=== PATIENT | male | born 1960 | race Caucasian/White ===

== ENCOUNTER 2020-08-01 18:27 | Observation (INO) ==
[2020-08-01] MEDS ORDERED: IOPAMIDOL 100 ML BOTTLE IV ONE (18:28)
[2020-08-01] MEDS ORDERED: KETOROLAC 15 MG/ML VIAL IV ONE (18:29)
[2020-08-01] MEDS ORDERED: PHENobarb/HYOSCY/ATROPINE/SCOP 1 DOSE BOTTLE PO ONE (18:29)
--- NOTE | 2020-08-01 18:33 | Emergency Department Note ---
HPI General Chief complaint: Chest Pain Stated complaint: chest pain Time Seen by Provider: 08/01/20 18:29 Source: patient Mode of arrival: ambulatory Limitations: no limitations History of Present Illness HPI Narrative: Narrative: 60-year-old male presents the ER to be evaluated for 2 days of constipation and lack of passing gas. 1 year ago he had a vertebral fusion with an anterior and posterior approach. He had a bowel obstruction resolved with an NG tube and patient. Since then over the last year he has had multiple episodes where he has had significant indigestion after eating food but it is resolved on its own. He is on Prilosec which has not done a great job keeping his reflux under control. He has had some pain radiating into his chest from this. He states he has made a bowel movement for 2 days and has been passing gas and feels like he did when he had a previous bowel obstruction. He has had nausea without vomiting. He denies diaphoresis, worsening with exertion, previous cardiac hist ory. He did have an inpatient cardiac work-up with negative stress test and echocardiogram within the last few years. He states he had a clear bill of health in terms of his heart. He is concerned for obstruction at this time and has no other acute he denies headache, diaphoresis, vomiting, chest pressure, dysuria, urgency or frequency. He does have difficulty taking deep breaths and has abdominal pain when he takes in very deep breaths. Related Data Allergies Allergy/AdvReac Type Severity Reaction Status Date / Time tetanus immune globulin Allergy Severe Anxiety Verified 08/01/20 18:31 sulfacetamide Allergy Unknown Unknown Verified 08/01/20 18:31 [From Sulfamide] Review of Systems ROS ROS Narrative: Narrative: All systems ED: reviewed and negative except as stated. PFSH Narrative Patient History Narrative: Narrative: Social History Smoking Status: Never smoker Exam Narrative Narrative: Narrative: Gen: No acute distress Eyes: PERRL, no conjunctival injection , and symmetrical lids. Sclerae non icteric HENMT: Normocephalic Atraumatic head, external nose and ears. Moist MM. CVS: +S1/S2, No murmurs or gallops. Radial pulses 2+ and equal bilat. No swelling RESP: Unlabored respiratory effort . Clear to auscultation bilaterally (CTAB). No noted wheezes rales or ronchi. GI: Mild epigastric tenderness worse with deep breaths MSK: Extremities w/o deformity or ttp. No cyanosis or clubbing. Skin: Warm, Dry . No rashes or lesions . Cap refill less than 2. Psych: Awake, Alert, & Oriented (AAO) x3. Appropriate mood and affect . General Limitations: no limitations Course Course Course Narrative: Patient has concern for bowel obstruction given his history of previous bowel obstruction. He does have pain radiating into his chest but there is no exertional component he has had negative work-up in the past which has been fairly recent with a negative stress test and echocardiogram. He will still be evaluated with troponin, chest x-ray, EKG, CBC, CMP, lipase as well as a CT scan of the abdomen pelvis to rule out obstruction. He will receive 15 mg of Toradol at this time for pain as he refused opioids and a GI cocktail to use this as a diagnostic. Vital Signs Vital signs: Vital Signs Temperature 98 F 08/01/20 18:28 Pulse Rate 80 08/01/20 18:28 Respiratory Rate 97 H 08/01/20 18:28 Blood Pressure 174/105 08/01/20 18:28 Pulse Oximetry (%) 97 08/01/20 18:28 Temperature 98 F 08/01/20 18:28 Pulse Rate 80 08/01/20 18:28 Respiratory Rate 97 H 08/01/20 18:28 Blood Pressure 174/105 08/01/20 18:28 Pulse Oximetry (%) 97 08/01/20 18:28 [facility] Narrative Medical decision making narrative: Narrative: CBC: Unremarkable CMP: Lipase: Troponin: [id number] creatinine: Normal EKG: Normal sinus rhythm rate [address] or T wave abnormality to suggest acute ischemia. Printout suggests considering anterior infarct but there is positive flexion there I do not believe there is a Q wave. This was over read by the physician. Chest x-ray: Normal chest x-ray as read by myself radiology overread pending. CT abdomen pelvis with contrast: Reevaluation: Patient's pain is gone from an 8 to a 2 after the Toradol. He says the GI cocktail numbs his esophagus but did not provide significant relief. He has had no episodes of vomiting since has been here. Patient still waiting labs to return and ct scan of the abd/ pelvis. It is the end of my shift. The Dr. Stanley will be assuming care for the patient. I talked to him [id number] regarding the disposition and work-up for this patient,he is privy to all information and history. He will assume care for the patient at this time. Discharge Plan Patient/Caregiver Discharge Instructions Pt seen by PEDIATRIC SPEECH LANGUAGE PATHOLOGIST/PA only: No Patient Disposition: Still a Patient Follow up with: Shola Stanley DO [Primary Care Provider] -
[2020-08-01 18:54] LABS: POC Creatinine 0.8 mg/dL (0.6-1.2)
[2020-08-01 19:59] LABS: Basophils # (Auto) 0.03 K/mcL (0.00-0.20); Basophils % (Auto) 0.3 % (0.0-2.0); Eosinophils # (Auto) 0.04 K/mcL (0.00-0.70); Eosinophils % (Auto) 0.4 % (0.0-7.0); Hematocrit 43.7 % (41.0-55.0); Lymphocytes # (Auto) 0.89 K/mcL (1.50-4.80); Lymphocytes % (Auto) 8.6 % (15.0-49.0); Mean Cell Volume 90.7 fL (80.0-100.0); Mean Corpuscular HGB Conc 34.3 g/dL (31.0-36.0); Mean Platelet Volume 11.3 fL (7.4-10.4); Monocytes # (Auto) 0.92 K/mcL (0.10-0.90); Monocytes % (Auto) 8.9 % (1.0-12.0); Neutrophils % (Auto) 81.8 % (38.0-78.0); Platelet Count 257 K/mcL (140-440); RBC 4.82 M/mcL (4.50-5.90); Red Cell Distribution Width 12.6 % (11.5-14.5); WBC 10.3 K/mcL (4.5-11.0)
[2020-08-01 20:29] LABS: ALT/SGPT 22 U/L (<40); AST/SGOT 30 U/L (<40); Albumin 4.4 gm/dL (3.2-5.2); Albumin/Globulin Ratio 1.8 (1.0-2.3); Alkaline Phosphatase 101 U/L (39-117); Bilirubin,Total 0.7 mg/dL (0.1-1.0); Blood Urea Nitrogen 13 mg/dL (6-20); Calcium 8.5 mg/dL (8.6-10.4); Carbon Dioxide 23 mmol/L (22-30); Chloride 102 mmol/L (96-108); Globulin 2.4 gm/dL (2.2-3.7); Glomerular Filtration Rate 97; Glucose 116 mg/dL (70-105)
[2020-08-01] MEDS ORDERED: ONDANSETRON 4 MG/2 ML VIAL IV PRN (20:50)
[2020-08-01] MEDS ORDERED: morphine 4 MG/ML VIAL IV PRN (20:50)
--- NOTE | 2020-08-01 20:50 | Emergency Department Note ---
HPI General Chief complaint: Chest Pain Stated complaint: chest pain Time Seen by Provider: 08/01/20 18:29 Source: patient Mode of arrival: ambulatory Limitations: no limitations History of Present Illness HPI Narrative: Narrative: Patient is a 60-year-old male who was signed out to me by the [facility]. At signout, CT scan was pending as well as a few of the blood test. I agree with work-up and plan thus far. Related Data Allergies Allergy/AdvReac Type Severity Reaction Status Date / Time tetanus immune globulin Allergy Severe Anxiety Verified 08/01/20 18:31 sulfacetamide Allergy Unknown Unknown Verified 08/01/20 18:31 [From Sulfamide] Review of Systems ROS ROS Narrative: Narrative: [facility] Narrative Patient History Narrative: Narrative: Medical/Surgical/Family History All Active Problems (Updated 08/01/20 @ 22:12 by Keerthi Renee MD) Chronic low back pain (Acute) Acute on chronic cholecystitis (Acute) Surgical History (Updated 08/01/20 @ 22:09 by Keerthi Renee MD) Previous back surgery Family History (Updated 08/01/20 @ 22:08 by Keerthi Renee MD) Father No problems noted. Mother Multiple sclerosis Social History Smoking Status: Never smoker Exam Narrative Narrative: Narrative: General Limitations: no limitations Course Vital Signs Vital signs: Vital Signs Temperature 98 F 08/01/20 18:28 Pulse Rate 80 08/01/20 18:28 Respiratory Rate 97 H 08/01/20 18:28 Blood Pressure 174/105 08/01/20 18:28 Pulse Oximetry (%) 97 08/01/20 18:28 Temperature 98 F 08/01/20 18:28 Pulse Rate 90 08/01/20 22:05 Respiratory Rate 27 H 08/01/20 22:05 Blood Pressure 160/104 08/01/20 22:05 Pulse Oximetry (%) 95 08/01/20 22:05 MDM MDM Narrative Medical decision making narrative: Narrative: Please see the [facility] note for further details. I did personally see and examine the patient myself, he is resting in bed comfortably and talking normally and appropriately. Abdominal exam is benign with no significant rebound or guarding outside of some right upper quadrant tenderness on exam. Vital signs remained stable he does not appear to be septic or toxic. Blood work overall unremarkable, however CT scan did reveal acute cholecystitis which is consistent with his current presentation. I discussed the case with the on-call surgeon, Dr. Renee, and he agreed to admit the patient for further work-up and management and likely surgery in the morning. Patient and family members agree with the plan this time have no further concerns or questions Lab Data Result diagrams: 08/01/20 18:51 08/01/20 18:50 Labs: Lab Results 08/01/20 08/01/20 08/01/20 Range/Units 18:50 18:50 18:51 WBC 10.3 (4.5-11.0) K/mcL RBC 4.82 (4.50-5.90) M/mcL Hgb 15.0 (13.5-16.5) g/dL Hct 43.7 (41.0-55.0) % MCV 90.7 (80.0-100.0) fL MCH 31.1 (26.0-34.0) pg MCHC 34.3 (31.0-36.0) g/dL RDW 12.6 (11.5-14.5) % Plt Count 257 (140-440) K/mcL MPV 11.3 H (7.4-10.4) fL Neut % (Auto) 81.8 H (38.0-78.0) % Lymph % (Auto) 8.6 L (15.0-49.0) % [place] % (Auto) 8.9 (1.0-12.0) % Eos % (Auto) 0.4 (0.0-7.0) % Baso % (Auto) 0.3 (0.0-2.0) % Lymph # (Auto) 0.89 L (1.50-4.80) K/mcL [place] # (Auto) 0.92 H (0.10-0.90) K/mcL Eos # (Auto) 0.04 (0.00-0.70) K/mcL Baso # (Auto) 0.03 (0.00-0.20) K/mcL Absolute Neutrophils 8.45 H (1.80-8.00) K/mcL Sodium 137 (133-145) mmol/L Potassium 3.5 (3.3-5.1) mmol/L Chloride 102 (96-108) mmol/L Carbon Dioxide 23 (22-30) mmol/L Anion Gap 12.0 (8.0-16.0) BUN 13 (6-20) mg/dL Creatinine 0.8 (0.7-1.2) mg/dL POC Creatinine 0.8 (0.6-1.2) mg/dL GFR Calculation 97 Glucose 116 H (70-105) mg/dL Calcium 8.5 L (8.6-10.4) mg/dL Total Bilirubin 0.7 (0.1-1.0) mg/dL AST 30 (<40) U/L ALT 22 (<40) U/L Alkaline Phosphatase 101 (39-117) U/L Troponin T < 0.01 (<0.03) ng/mL Total Protein 6.8 (5.9-8.4) gm/dL Albumin 4.4 (3.2-5.2) gm/dL Globulin 2.4 (2.2-3.7) gm/dL Albumin/Globulin Ratio 1.8 (1.0-2.3) Lipase 24 (7-60) U/L Discharge Plan Patient/Caregiver Discharge Instructions Pt seen by [employer] MAKER/PA only: No Patient Disposition: Still a Patient Follow up with: Shola Stanley DO [Primary Care Provider] -
[2020-08-01] MEDS ORDERED: ACETAMINOPHEN 325 MG TABLET PO ONE (21:30)
--- NOTE | 2020-08-01 22:13 | General Surg History&Physical ---
HPI History of Present Illness Patient information: Note initiated : 08/01/20 at 10:01 pm Service Date, if different from initiated Date: [] Patient: Danilo Rendon a 60 y/o M admitted on for Chest pain. Chief Complaint: [] Chief complaint: Acute and chronic cholecystitis History of present illness: Mr. Rendon is a 60 year old M who presents to the emergency room with a history of recurrent upper abdominal pain radiating into the chest with nausea but no vomiting. He attributed to gas pain and partial intestinal obstruction and or constipation. He was treated symptomatically and improved. He had onset of severe upper abdominal pain and lower chest pain earlier this morning. It persisted throughout the day. He had nausea but no vomiting. When the pain did not improve he was seen in the emergency room. CT of the abdomen and pelvis reveals an edematous inflamed gallbladder with pericholecystic fluid suspicious for cholecystitis. No stones are seen on the CT. His liver panel is normal. Patient is admitted with acute cholecystitis. He will have upper abdominal ultrasound to confirm that he has stones. He is counseled for laparoscopic cholecystectomy. Review of Systems All systems: reviewed and no additional remarkable complaints except as stated Gastrointestinal Gastrointestinal: Present abdominal pain, belching, change in bowel habits, cramping, excessive flatus, heartburn and nausea Musculoskeletal Musculoskeletal: Present arthralgias, back pain, myalgias and radiating pain into limb PFSH PFSH All Active Problems (Updated 08/01/20 @ 22:12 by Keerthi Renee MD) Chronic low back pain (Acute) Acute on chronic cholecystitis (Acute) Surgical History (Updated 08/01/20 @ 22:09 by Keerthi Renee MD) Previous back surgery Family History (Updated 08/01/20 @ 22:08 by Keerthi Renee MD) Father No problems noted. Mother Multiple sclerosis Social History (Updated 08/01/20 @ 22:07 by Keerthi Renee MD) smoking status: Never smoker alcohol intake frequency: 2+ drinks per day substance use type: does not use MEDS/ALLERGIES Home Medications and Allergies Allergies Allergy/AdvReac Type Severity Reaction Status Date / Time tetanus immune globulin Allergy Severe Anaphylaxis Verified 08/02/20 01:05 sulfacetamide Allergy Unknown Hives Verified 08/02/20 01:35 [From Sulfamide] Physical Examination Vital Signs Vital signs: Temp Pulse Resp BP Pulse Ox 98 F 68 19 169/90 96 08/01/20 18:28 08/01/20 21:30 08/01/20 21:30 08/01/20 21:30 08/01/20 21:30 General physical appearance General physical exam: well developed, well nourished, no distress and moderate pain Eyes Eye exam: PERRL and normal ocular movement ENT ENT exam: normal nares, normal mucosa and no hearing loss Head Head exam IM: Present atraumatic, normal inspection and normocephalic Neck Neck exam: no masses, no bruits, trachea midline and no lymphadenopathy Cardiovascular Cardiovascular exam IM: Present normal rate and rhythm, RRR, +S1 and +S2; Absent JVD Abdomen Abdomen: Present soft and tender (Right upper quadrant and epigastrium) Integumentary Integumentary: Present no rash, no growths and no abnormal pigmentation Neurologic Neurologic: Present normal coordination and normal sensation Musculoskeletal Musculoskeletal: Present normal gait and normal posture Psychiatric Psychiatric: Present oriented to time, oriented to person, oriented to place, speech is normal and memory intact Results Labs Result diagrams: 08/02/20 05:18 08/02/20 05:18 Labs: Abnormal lab results 08/01/20 08/01/20 Range/Units 18:50 18:51 MPV 11.3 H (7.4-10.4) fL Neut % (Auto) 81.8 H (38.0-78.0) % Lymph % (Auto) 8.6 L (15.0-49.0) % Lymph # (Auto) 0.89 L (1.50-4.80) K/mcL [place] # (Auto) 0.92 H (0.10-0.90) K/mcL Absolute Neutrophils 8.45 H (1.80-8.00) K/mcL Glucose 116 H (70-105) mg/dL Calcium 8.5 L (8.6-10.4) mg/dL Diabetes panel 08/01/20 Range/Units 18:50 Sodium 137 (133-145) mmol/L Potassium 3.5 (3.3-5.1) mmol/L Chloride 102 (96-108) mmol/L Carbon Dioxide 23 (22-30) mmol/L BUN 13 (6-20) mg/dL Creatinine 0.8 (0.7-1.2) mg/dL Glucose 116 H (70-105) mg/dL Calcium 8.5 L (8.6-10.4) mg/dL AST 30 (<40) U/L ALT 22 (<40) U/L Alkaline Phosphatase 101 (39-117) U/L Total Protein 6.8 (5.9-8.4) gm/dL Albumin 4.4 (3.2-5.2) gm/dL Calcium panel 08/01/20 Range/Units 18:50 Calcium 8.5 L (8.6-10.4) mg/dL Albumin 4.4 (3.2-5.2) gm/dL Pituitary panel 08/01/20 Range/Units 18:50 Sodium 137 (133-145) mmol/L Potassium 3.5 (3.3-5.1) mmol/L Chloride 102 (96-108) mmol/L Carbon Dioxide 23 (22-30) mmol/L BUN 13 (6-20) mg/dL Creatinine 0.8 (0.7-1.2) mg/dL Glucose 116 H (70-105) mg/dL Calcium 8.5 L (8.6-10.4) mg/dL Adrenal panel 08/01/20 Range/Units 18:50 Sodium 137 (133-145) mmol/L Potassium 3.5 (3.3-5.1) mmol/L Chloride 102 (96-108) mmol/L Carbon Dioxide 23 (22-30) mmol/L BUN 13 (6-20) mg/dL Creatinine 0.8 (0.7-1.2) mg/dL Glucose 116 H (70-105) mg/dL Calcium 8.5 L (8.6-10.4) mg/dL Total Bilirubin 0.7 (0.1-1.0) mg/dL AST 30 (<40) U/L ALT 22 (<40) U/L Alkaline Phosphatase 101 (39-117) U/L Total Protein 6.8 (5.9-8.4) gm/dL Albumin 4.4 (3.2-5.2) gm/dL All other labs normal. A/P Assessment and plan (1) Acute on chronic cholecystitis: Status: Acute (2) Chronic low back pain: Status: Acute Narrative A/P Narrative: Patient is admitted and will have upper abdominal ultrasound for completion of evaluation He is scheduled for laparoscopic cholecystectomy in the morning He will be covered with Zosyn antibiotics in the perioperative. May have clear liquids until midnight N.p.o. after midnight Time Spent With Patient Time: Total time spent is greater than 50% in coordination of care (as documented) at patient's floor/unit and/or counseling patient:
[2020-08-01] MEDS: 0.9 % SODIUM CHLORIDE 1,000 ML IV SCH (23:50)
[2020-08-01] MEDS: PIPERACILLIN SODIUM/TAZOBACTAM 3.375 GM in DEXTROSE 5% IN WATER 50 ML IV SCH (23:53)
[2020-08-02] MEDS: ACETAMINOPHEN 1,000 MG/100 ML BAG IV SCH ×8 (00:04→23:20)
[2020-08-02] MEDS: 0.9 % SODIUM CHLORIDE 10 ML SYRINGE IV SCH ×6 (00:05→21:33)
[2020-08-02] MEDS ORDERED: SCOPOLAMINE 1 PATCH PATCH TOPICAL PRN ×2 (00:14→08:00)
[2020-08-02] MEDS ORDERED: IPRATROPIUM/ALBUTEROL 3 ML AMPUL.NEB NEB PRN ×3 (00:14→10:21)
[2020-08-02] MEDS: HYDROmorphone 1 MG/ML SYRINGE IV PRN ×4 (00:41→20:51)
[2020-08-02] MEDS: PIPERACILLIN SODIUM/TAZOBACTAM 3.375 GM in DEXTROSE 5% IN WATER 50 ML IV SCH ×3 (04:49→18:08)
--- NOTE | 2020-08-02 04:53 | XRay Report ---
CLINICAL INFORMATION: Chest pain COMPARISON: 06/20/2018 TECHNIQUE: Portable FINDINGS: The heart size, mediastinum and pulmonary vessels are unremarkable. The lungs are clear. There are no effusions. The bones and soft tissues are within normal limits. IMPRESSION: Normal chest. Interpreted and Authenticated by: Shiv Robles 08/02/20
--- NOTE | 2020-08-02 07:05 | Cat Scan Report ---
CLINICAL INFORMATION: Abdominal pain and distention COMPARISON: None. TECHNIQUE: Following enteric contrast, 80 cc of Isovue-370 were injected intravenously, and 60 seconds later, 0.625 mm helical slices were obtained from the mid heart through the subtrochanteric regions. Following reconstruction, 2.5 mm sagittal, coronal and axial reformatted images were processed and reviewed at bone, lung and soft tissue windows. Five minutes later, 0.625 mm helical slices were obtained from the mid heart through the kidneys and viewed at soft tissue windows.The exam was performed using radiation dose optimization techniques including, but not limited to, automated exposure control, adjustment of the mA and/or kV according to patient size and use of iterative reconstruction technique. FINDINGS: The lung bases show minor fibrosis in both posterior lower lobes - more prominent on the left. Two benign subpulmonic lymph nodes present in the lingular region: no significant nodule. No pleural effusions. Visualized heart is mildly enlarged scattered calcific plaque in the coronary arteries. Small hiatal hernia noted. Abdominal images show moderate distention of the gallbladder with diffuse wall thickening and pericholecystic fluid. No stones identified. Intrahepatic and common bile ducts are normal caliber: CBD is 5 mm. The liver, both kidneys, adrenal glands, spleen, pancreas and aorta including aortic branches are normal in size configuration and attenuation without focal lesion. There is no free air, free fluid or adenopathy Pelvic images show prostate, seminal vesicles and urinary bladder are normal. Multiple sigmoid diverticuli appreciated, but no evidence of diverticulitis. The remaining colon, appendix region, small bowel and stomach are normal. 3 cm periumbilical hernia contains only mesenteric fat. The bone windows show L4-5/L5-S1 anterior/posterior fusion which is solid anatomically aligned. No focal osseous lesions. IMPRESSION: 1. Cholecystitis. The intrahepatic and common bile ducts are normal caliber. 2. Small hiatal hernia. 3. Mild fibrotic stranding both posterior lower lobes. Small benign subpulmonic lymph nodes in the lingula. No significant pulmonary nodule. 4. 3 cm periumbilical hernia containing only mesenteric fat. 5. Sigmoid diverticulosis - no acute diverticulitis. 6. Mild cardiomegaly with calcific plaque within the visualized coronary arteries. Please consider aggressive identification and treatment of atherosclerotic risk factors Interpreted and Authenticated by: Shiv Robles 08/02/20
--- NOTE | 2020-08-02 07:06 | Ultrasound Report ---
CLINICAL INFORMATION: Right upper quadrant pain COMPARISON: None. FINDINGS: Gallbladder is moderately distended with diffuse wall thickening pericholecystic fluid and a sonographic Sanchez's sign. There are also tiny stones layering dependently within the gallbladder. Findings are compatible with acute cholecystitis. Intrahepatic and common bile ducts are normal caliber CBD is 6 mm. The liver and pancreas are normal in size and echotexture. No free fluid IMPRESSION: Cholecystitis Interpreted and Authenticated by: Shiv Robles 08/02/20
[2020-08-02] MEDS: PANTOPRAZOLE 40 MG VIAL IV SCH ×2 (07:25→16:43)
[2020-08-02 08:24] LABS: Appearance,Urine CLEAR (Clear); Bilirubin,Urine Negative (Negative); Color,Urine YELLOW; Culture Indicated,Urine No; Glucose,Urine (UA) Negative (Negative); Ketones,Urine Negative (Negative); Leukocyte Esterase,Urine Negative /ug (Negative); Nitrate,Urine Negative (Negative); Protein,Urine Negative (Negative); Specific Gravity,Urine > 1.060 (1.000-1.035); Urine Blood Negative (Negative); Urobilinogen,Urine Negative
[2020-08-02 08:49] LABS: ALT/SGPT 19 U/L (<40); AST/SGOT 22 U/L (<40); Alkaline Phosphatase 89 U/L (39-117); Bilirubin,Direct < 0.2 mg/dL (0-0.3); Bilirubin,Total 1.1 mg/dL (0.1-1.0); Blood Urea Nitrogen 11 mg/dL (6-20); Calcium 7.9 mg/dL (8.6-10.4); Carbon Dioxide 23 mmol/L (22-30); Chloride 103 mmol/L (96-108); Glomerular Filtration Rate 102; Glucose 109 mg/dL (70-105); Lactate Dehydrogenase 194 U/L (135-225); Phosphorous 2.7 mg/dL (2.5-4.5); Triglycerides 43 mg/dL (<150); Uric Acid 5.4 mg/dL (2.5-8.0)
[2020-08-02] MEDS ORDERED: DEXAMETHASONE 10 MG/ML VIAL ONE (08:56)
[2020-08-02] MEDS ORDERED: PROPOFOL 200 MG/20 ML VIAL IV ONE (08:56)
[2020-08-02] MEDS ORDERED: KETAMINE 50 MG/ML ML ONE (08:56)
[2020-08-02] MEDS ORDERED: MAGNESIUM SULFATE 2 GM/50 ML BAG IV ONE (08:56)
[2020-08-02] MEDS ORDERED: ONDANSETRON 4 MG/2 ML VIAL ONE (08:56)
[2020-08-02] MEDS ORDERED: ROCURONIUM 10 MG/ML ML IV ONE (08:56)
[2020-08-02] MEDS ORDERED: fentaNYL 250 MCG/5 ML VIAL IV ONE (08:56)
[2020-08-02] MEDS ORDERED: MIDAZOLAM 5 MG/5 ML VIAL ONE (08:56)
[2020-08-02] MEDS ORDERED: LIDOCAINE HCL/PF 100 MG/5 ML SYRINGE IV ONE (08:56)
[2020-08-02] MEDS ORDERED: SUCCINYLCHOLINE 20 MG/ML ML IV ONE (08:56)
[2020-08-02 09:15] LABS: Basophils # (Auto) 0.03 K/mcL (0.00-0.20); Basophils % (Auto) 0.3 % (0.0-2.0); Eosinophils # (Auto) 0.09 K/mcL (0.00-0.70); Eosinophils % (Auto) 0.9 % (0.0-7.0); Hematocrit 41.2 % (41.0-55.0); Hemoglobin 14.1 g/dL (13.5-16.5); Lymphocytes # (Auto) 0.85 K/mcL (1.50-4.80); Lymphocytes % (Auto) 8.7 % (15.0-49.0); Mean Cell Volume 91.4 fL (80.0-100.0); Mean Corpuscular HGB Conc 34.2 g/dL (31.0-36.0); Mean Platelet Volume 11.4 fL (7.4-10.4); Monocytes # (Auto) 1.38 K/mcL (0.10-0.90); Monocytes % (Auto) 14.1 % (1.0-12.0); Platelet Count 216 K/mcL (140-440); RBC 4.51 M/mcL (4.50-5.90); Red Cell Distribution Width 12.7 % (11.5-14.5); WBC 9.8 K/mcL (4.5-11.0)
--- NOTE | 2020-08-02 10:15 | Brief Operative Note ---
Brief Operative Note Date of procedure: 08/02/20 Pre-op diagnosis: acute cholecystitis with cholelithiasis Post-op diagnosis: other (acute cholecystitis with cholelithiasis and empyema of gallbladder) Procedure: laparoscopic cholecytectomy Grafts/Implants: No (gem drain x1) Anesthesia: GETA Findings: acute severe inflammation of gallbladder with empyema filling gallb ladder and small stones Complications: none Surgeon: Keerthi Renee Estimated blood loss (cc): 20 Specimens Removed/Pathology: other (gallbladder ; purulence for culture) Condition: stable Disposition: PACU
[2020-08-02] MEDS ORDERED: MEPERIDINE 25 MG/ML VIAL IV PRN (10:21)
[2020-08-02] MEDS ORDERED: FLUMAZENIL 0.1 MG/ML ML IV PRN (10:21)
[2020-08-02] MEDS ORDERED: fentaNYL 100 MCG/2 ML VIAL IV PRN (10:21)
[2020-08-02] MEDS ORDERED: ePHEDrine 50 MG/ML AMPUL IV PRN (10:21)
[2020-08-02] MEDS ORDERED: diphenhydrAMINE 50 MG/ML VIAL IV PRN (10:21)
[2020-08-02] MEDS ORDERED: NALOXONE HCL 0.4 MG/ML VIAL IV PRN (10:21)
[2020-08-02] MEDS ORDERED: ATROPINE SULFATE 0.4 MG/ML VIAL IV PRN (10:21)
[2020-08-02] MEDS ORDERED: METHOCARBAMOL 1,000 MG/10 ML VIAL IV PRN (10:21)
[2020-08-02] MEDS ORDERED: ACETAMINOPHEN 1,000 MG/100 ML BAG IV ONE (10:21)
[2020-08-02] MEDS ORDERED: PROMETHAZINE 25 MG/ML VIAL IV PRN (10:21)
[2020-08-02] MEDS ORDERED: LACTATED RINGERS 1,000 ML IV SCH (10:30)
[2020-08-02] MEDS: 0.9 % SODIUM CHLORIDE 1,000 ML IV SCH ×4 (11:34→21:00)
[2020-08-02] MEDS: KETOROLAC 30 MG/ML VIAL IV PRN ×2 (11:58→19:19)
--- NOTE | 2020-08-02 18:35 | EKG ---
[facility] Test Date: 2020-08-02 Pat Name: Danilo Rendon Department: [facility] Room: 130 Gender: Male [employer] Supervisor: : [id number] Requested By: Keerthi Renee Order Number: [id number] Reading MD: Nicola Quigley M.D. Measurements Intervals [place] Rate: 68 P: 13 [place]: 176 QRS: 54 QRSD: 100 T: 19 QT: 416 QTc: 443 Interpretive Statements SINUS RHYTHM Since previous ECG of 08-01-2020, 1803, NSC NORMAL TRACING Electronically Signed On 08-02-2020 18:35:07 PDT by Nicola Quigley M.D. /store/[id number]
[2020-08-02] MEDS ORDERED: METHOCARBAMOL 750 MG TABLET PO PRN (19:27)
[2020-08-03] MEDS: PIPERACILLIN SODIUM/TAZOBACTAM 3.375 GM in DEXTROSE 5% IN WATER 50 ML IV SCH ×3 (00:30→11:29)
[2020-08-03] MEDS: HYDROmorphone 1 MG/ML SYRINGE IV PRN ×2 (04:10→11:29)
[2020-08-03] MEDS: 0.9 % SODIUM CHLORIDE 1,000 ML IV SCH ×3 (04:15→13:52)
[2020-08-03] MEDS: ACETAMINOPHEN 1,000 MG/100 ML BAG IV SCH (04:15)
[2020-08-03] MEDS: 0.9 % SODIUM CHLORIDE 10 ML SYRINGE IV SCH ×4 (04:17→13:53)
[2020-08-03] MEDS: KETOROLAC 30 MG/ML VIAL IV PRN (04:17)
[2020-08-03 06:44] LABS: Basophils # (Auto) 0.02 K/mcL (0.00-0.20); Basophils % (Auto) 0.2 % (0.0-2.0); Eosinophils # (Auto) 0.01 K/mcL (0.00-0.70); Eosinophils % (Auto) 0.1 % (0.0-7.0); Hemoglobin 12.6 g/dL (13.5-16.5); Lymphocytes # (Auto) 0.99 K/mcL (1.50-4.80); Lymphocytes % (Auto) 10.5 % (15.0-49.0); Mean Cell Volume 92.7 fL (80.0-100.0); Mean Corpuscular HGB Conc 34.1 g/dL (31.0-36.0); Mean Platelet Volume 11.2 fL (7.4-10.4); Monocytes # (Auto) 1.14 K/mcL (0.10-0.90); Monocytes % (Auto) 12.1 % (1.0-12.0); Neutrophils % (Auto) 77.1 % (38.0-78.0); Platelet Count 190 K/mcL (140-440); RBC 3.99 M/mcL (4.50-5.90); Red Cell Distribution Width 12.5 % (11.5-14.5); WBC 9.4 K/mcL (4.5-11.0)
[2020-08-03 07:07] LABS: ALT/SGPT 31 U/L (<40); AST/SGOT 33 U/L (<40); Albumin 3.4 gm/dL (3.2-5.2); Albumin/Globulin Ratio 1.6 (1.0-2.3); Alkaline Phosphatase 74 U/L (39-117); Bilirubin,Direct < 0.2 mg/dL (0-0.3); Bilirubin,Total 0.6 mg/dL (0.1-1.0); Blood Urea Nitrogen 11 mg/dL (6-20); Calcium 7.7 mg/dL (8.6-10.4); Carbon Dioxide 24 mmol/L (22-30); Chloride 103 mmol/L (96-108); Globulin 2.1 gm/dL (2.2-3.7); Glomerular Filtration Rate 97; Glucose 109 mg/dL (70-105); Lactate Dehydrogenase 178 U/L (135-225); Phosphorous 2.5 mg/dL (2.5-4.5); Triglycerides 52 mg/dL (<150); Uric Acid 3.8 mg/dL (2.5-8.0)
[2020-08-03] MEDS: PANTOPRAZOLE 40 MG VIAL IV SCH (07:13)
[2020-08-03] MEDS ORDERED: LOSARTAN 25 MG TABLET PO SCH (09:00)
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
--- NOTE | 2020-08-04 12:17 | EKG ---
[facility] Test Date: 2020-08-01 Pat Name: Danilo Rendon Department: MEDR Room: 130 Gender: Male Senior Scrum Master: : [id number] Requested By: Shoaib Scott Order Number: [id number] Reading MD: Nicola Quigley M.D. Measurements Intervals [place] Rate: 82 P: 0 DE: 157 QRS: 48 QRSD: 100 T: 19 QT: 383 QTc: 448 Interpretive Statements Sinus rhythm NO PRIOR TRACING FOR COMPARISON NORMAL TRACING Electronically Signed On 08-04-2020 12:17:42 PDT by Nicola Quigley M.D. /store/[email or web address]/[id number]
--- NOTE | 2020-08-05 12:17 | Surgical Pathology Report ---
Histology Microscopic Diagnosis Specimen A- GALLBLADDER, CHOLECYSTECTOMY: --- ACUTE AND CHRONIC CHOLECYSTITIS WITH CHOLELITHIASIS. (RLF:bmw) Procedural Impression Acute/chronic cholecystitis. Gross Description Received in formalin labeled gallbladder, is a 9.5 x 4.5 x 1.5 cm arriola-purple gallbladder specimen. There are two metal clamps present neither of which are on the cystic duct. The cystic duct is closed with a staple line. The majority of the serosa is smooth and glistening with approximately 25% roughened brown-omrton. Within the roughened area there is a 2.7 cm in greatest dimension opening. The mucosa is velvety pink-morton with no masses or lesions identified. The wall is up to 0.4 cm thick. Within the gallbladder specimen there are multiple irregular black-brown soft stones ranging in size from 0.1 up to 0.4 cm. Handkerchief Folder portions are submitted in one cassette. (KGW:bmw) Electronically Signed Selene Santos MD, FCAP Electronically Signed 08/05/2020 12:15
--- NOTE | 2020-09-02 15:29 | Operative Note ---
DATE OF OPERATION: 08/02/2020 PREOPERATIVE DIAGNOSES: Acute cholecystitis with cholelithiasis. POSTOPERATIVE DIAGNOSES: Acute cholecystitis with cholelithiasis and empyema of the gallbladder. SURGEON: Keerthi Renee M.D. FINDINGS: Acute severe inflammation of the gallbladder with empyema filling the gallbladder with multiple small stones. DESCRIPTION OF PROCEDURE: Under general anesthesia, the patient's abdomen was prepped and draped in a sterile field. Supraumbilical incision was made. Veress needle was inserted uneventfully. Abdomen was insufflated with 2.5 liters of CO2. A 12 mm port was placed. Laparoscope was placed. Under videoscopic guidance, a 12 mm port and two 5 mm ports were placed in the right subcostal region. The gallbladder was severely inflamed and engorged. Under direct vision, it was aspirated using a Weck needle. There was clear purulent bile. Part of it was sent for culture. Once the gallbladder was decompressed, it was grasped and positioned. Infundibulum was dissected and the cystic duct and cystic artery were isolated. Cystic duct was inflamed and thickened. Once the cystic duct and cystic artery were definitively identified, the cystic duct was transected using the Endo AUNG stapler at its junction with the gallbladder. Cystic artery was clipped with five clips and divided. Using primarily blunt dissection, the gallbladder was from the infrahepatic bed. Some electrocautery was used to divide adhesions. The gallbladder was excised and placed in an Endopouch and retrieved. Irrigation was carried out. There was slight oozing from the bed, so a single sheet of Surgicel was placed in the bed. A Gonzalo drain was placed in the subhepatic space. CO2 was allowed to escape from the abdomen and the ports were removed. The fascia at the umbilicus was closed with 0 Vicryl. Skin incisions were closed with marvin. The drain was secured with 2-0 nylon. Tegaderm dressings were placed. The patient tolerated the procedure well. He was awakened, transferred to a bed, and taken to the postanesthetic care unit in satisfactory condition. LCS:christin Job ID: [id number] Doc ID: [id number] Keerthi Renee M.D.
== END 2020-08-03 14:25 | disposition home or self-care (01) ==
LOC: ED 18:27 → MEDSUR 18:27
PROVIDERS: ADMIT Family Medicine Adult Medicine; ATTEND Family Medicine Adult Medicine